=== PATIENT | male | born 1985 | race Caucasian/White ===

== ENCOUNTER → 2020-04-22 | Outpatient (CLI) | payer BC ==
[~2020-04-22] MED LIST: NYST237S SS; Vibramycin100 MG PO
[2020-04-22 12:05] LABS: BASOPHILS ABSOLUTE AUTO 0.02 K/mm3 (0.00-0.23); BASOPHILS PERCENT AUTO 0 % (0-2); EOSINOPHILS ABSOLUTE AUTO 0.01 K/mm3 (0.00-0.68); EOSINOPHILS PERCENT AUTO 0 % (0-6); Hematocrit 50.6 % (37.0-53.0); Hemoglobin 16.5 g/dL (13.5-17.5); IMMATURE GRAN ABSOLUTE AUTO 0.03 K/mm3 (0.00-0.10); IMMATURE GRAN PERCENT AUTO 0 % (0-1); LYMPHOCYTES ABSOLUTE AUTO 0.99 K/mm3 (0.84-5.20); LYMPHOCYTES PERCENT AUTO 11 % (21-46); MONOCYTES ABSOLUTE AUTO 0.95 K/mm3 (0.16-1.47); MONOCYTES PERCENT AUTO 11 % (4-13); Mean Corpuscular HGB 30.6 pg (26.0-34.0); Mean Corpuscular HGB Conc 32.6 g/dL (31.5-36.5); Mean Corpuscular Volume 94 fL (80-100); Mean Platelet Volume 10.9 fL (9.1-12.4); NEUTROPHILS ABSOLUTE AUTO 6.79 K/mm3 (1.96-9.15); NEUTROPHILS PERCENT AUTO 77 % (41-73); Platelet Count 221 K/mm3 (150-400); RDW Coefficient Variation 13.1 % (11.7-14.2); RDW Standard Deviation 45.2 fL (35.1-46.3); Red Blood Cell Count 5.39 M/mm3 (4.30-5.90); White Blood Cell Count 8.79 K/mm3 (4.00-11.30)
[2020-04-22 12:20] LABS: Alanine Aminotransfer (ALT/SGP 27 U/L (12-78); Albumin, Blood 4.1 g/dL (3.4-5.0); Alk Phos 94 U/L (50-136); Anion Gap 5 mmol/L (6-16); Aspartate Aminotrans (AST/SGOT 21 U/L (12-37); Bilirubin, Total 0.5 mg/dL (0.1-1.0); Blood Urea Nitrogen 12 mg/dL (8-24); Bun/Creatinine Ratio 10.3 (12.0-20.0); CO2, Blood 27 mmol/L (21-32); Calcium, Blood 8.7 mg/dL (8.5-10.1); Chloride, Blood 106 mmol/L (98-108); Creatinine, Blood 1.16 mg/dL (0.60-1.20); Glomerular Filtration Rate >60 (60-); Glucose, Blood 106 mg/dL (70-99); Potassium, Blood 3.7 mmol/L (3.5-5.5); Sodium, Blood 138 mmol/L (136-145); Total Protein, Blood 8.1 g/dL (6.4-8.2)
== END ==
LOC: LAB 11:57 → LAB SHORT 11:57
PROVIDERS: Physician Assistant
DX: R53.83 Other fatigue (principal); R50.9 Fever, unspecified
CPT/HCPCS: 80053; 85025

== ENCOUNTER 2020-04-24 21:11 | Emergency (ER) | payer BC ==
[~2020-04-24] VITALS: Ht 180.3 cm; Wt 131.5 kg
[2020-04-24] MEDS ORDERED: Vibramycin100 MG PO (22:35)
[2020-04-24] MEDS ORDERED: NYST237S SS (22:35)
== END 2020-04-24 23:00 | disposition home or self-care (01) ==
LOC: ER 21:11
DX: A69.1 Other Vincent's infections (principal); F17.220 Nicotine dependence, chewing tobacco, uncomplicated; Z88.0 Allergy status to penicillin
CPT/HCPCS: 99283; A9270

== ENCOUNTER → 2021-09-12 | Outpatient (CLI) | payer BC | LOC: LAB 08:30 → LAB SHORT 08:30 | DX: L08.9 Local infection of the skin and subcutaneous tissue, unspecified (principal) | CPT/HCPCS: 87070; 87205 ==

== ENCOUNTER 2024-08-01 17:28 | Emergency (ER) | payer BC ==
[~2024-08-01] VITALS: Ht 180.3 cm; Wt 138.3 kg
[2024-08-01] MEDS ORDERED: Aspirin 325 MG Tab PO ONE ×2 (17:40→20:05)
[2024-08-01 17:53] LABS: BASOPHILS ABSOLUTE AUTO 0.04 K/mm3 (0.00-0.23); BASOPHILS PERCENT AUTO 1 % (0-2); EOSINOPHILS PERCENT AUTO 3 % (0-6); Hematocrit 48.4 % (37.0-53.0); Hemoglobin 16.6 g/dL (13.5-17.5); IMMATURE GRAN ABSOLUTE AUTO 0.03 K/mm3 (0.00-0.10); IMMATURE GRAN PERCENT AUTO 0 % (0-1); LYMPHOCYTES ABSOLUTE AUTO 2.45 K/mm3 (0.84-5.20); LYMPHOCYTES PERCENT AUTO 30 % (21-46); MONOCYTES PERCENT AUTO 9 % (4-13); Mean Corpuscular HGB 31.6 pg (26.0-34.0); Mean Corpuscular HGB Conc 34.3 g/dL (31.5-36.5); Mean Corpuscular Volume 92 fL (80-100); Mean Platelet Volume 10.6 fL (9.1-12.4); NEUTROPHILS PERCENT AUTO 58 % (41-73); Platelet Count 241 K/mm3 (150-400); RDW Coefficient Variation 13.2 % (11.7-14.2); RDW Standard Deviation 45.1 fL (35.1-46.3); Red Blood Cell Count 5.26 M/mm3 (4.30-5.90); White Blood Cell Count 8.12 K/mm3 (4.00-11.30)
[2024-08-01 18:28] LABS: Albumin, Blood 3.9 g/dL (3.4-5.0); Albumin/Globulin Ratio 1.1 (0.8-1.8); Bilirubin, Total 0.6 mg/dL (0.1-1.0); Calcium, Blood 9.1 mg/dL (8.5-10.1); Creatinine, Blood 1.07 mg/dL (0.60-1.20); Globulin, Blood 3.4 g/dL (2.2-4.0); Total Protein, Blood 7.3 g/dL (6.4-8.2)
[2024-08-01] MEDS ORDERED: Mag Hydrox/AL Hydrox/Simeth 30 ML UDC PO ONE (20:20)
[2024-08-01] MEDS ORDERED: Lidocaine 2% Viscous Soln 15 ML UDC PO ONE (20:20)
[2024-08-01] MEDS ORDERED: SUCR1 PO (20:53)
[2024-08-01 21:00] VITALS: BP 118/89
== END 2024-08-01 21:00 | disposition home or self-care (01) ==
LOC: ER 17:28
PROVIDERS: Emergency Medicine
DX: R07.89 Other chest pain (principal); Z87.19 Personal history of other diseases of the digestive system; Z79.899 Other long term (current) drug therapy; Z88.0 Allergy status to penicillin
CPT/HCPCS: 71046; 80053; 83880; 84484; 85025; 93005; 93010; 99285-25; A9270

== ENCOUNTER 2025-04-12 09:59 | Inpatient (IN) | payer BC ==
[~2025-04-12] VITALS: Ht 180.3 cm; Wt 133.8 kg
[~2025-04-12 09:59] MED LIST changes: +AMOX875 PO; +DEPO-TESTO200 MG/18 IM; +OMEP20ER PO; +OXAYDO5 M2 PO; +SUCR1 PO
[2025-04-12] MEDS ORDERED: Ketorolac Tromethamine 15mg Vial IV ONE (10:25)
[2025-04-12] MEDS ORDERED: Acetaminophen 500 MG Tab PO ONE (10:25)
[2025-04-12 11:07] LABS: BASOPHILS ABSOLUTE AUTO 0.05 K/mm3 (0.00-0.23); BASOPHILS PERCENT AUTO 1 % (0-2); EOSINOPHILS ABSOLUTE AUTO 0.14 K/mm3 (0.00-0.68); EOSINOPHILS PERCENT AUTO 2 % (0-6); Hematocrit 51.1 % (37.0-53.0); Hemoglobin 16.8 g/dL (13.5-17.5); IMMATURE GRAN ABSOLUTE AUTO 0.01 K/mm3 (0.00-0.10); IMMATURE GRAN PERCENT AUTO 0 % (0-1); LYMPHOCYTES ABSOLUTE AUTO 2.45 K/mm3 (0.84-5.20); LYMPHOCYTES PERCENT AUTO 39 % (21-46); MONOCYTES ABSOLUTE AUTO 0.52 K/mm3 (0.16-1.47); MONOCYTES PERCENT AUTO 8 % (4-13); Mean Corpuscular HGB 31.1 pg (26.0-34.0); Mean Corpuscular HGB Conc 32.9 g/dL (31.5-36.5); Mean Corpuscular Volume 95 fL (80-100); Mean Platelet Volume 10.4 fL (9.1-12.4); NEUTROPHILS ABSOLUTE AUTO 3.18 K/mm3 (1.96-9.15); NEUTROPHILS PERCENT AUTO 50 % (41-73); Platelet Count 300 K/mm3 (150-400); RDW Coefficient Variation 12.9 % (11.7-14.2); RDW Standard Deviation 44.8 fL (35.1-46.3); Red Blood Cell Count 5.41 M/mm3 (4.30-5.90); White Blood Cell Count 6.35 K/mm3 (4.00-11.30)
[2025-04-12 12:36] LABS: Albumin, Blood 3.5 g/dL (3.4-5.0); Albumin/Globulin Ratio 0.8 (0.8-1.8); Bilirubin, Total 0.7 mg/dL (0.1-1.0); Bun/Creatinine Ratio 11.7 (12.0-20.0); C-REACTIVE PROTEIN, EXT RANGE 0.84 mg/dL (0.000-0.300); Calcium, Blood 8.7 mg/dL (8.5-10.1); Creatinine, Blood 1.11 mg/dL (0.60-1.20); Globulin, Blood 4.2 g/dL (2.2-4.0); Potassium, Blood 4.2 mmol/L (3.5-5.5); Total Protein, Blood 7.7 g/dL (6.4-8.2)
[2025-04-12] MEDS ORDERED: CeFAZolin Sodium 2,000 MG in NS 100 ML IV ONE (15:55)
[2025-04-12] MEDS ORDERED: Morphine Sulfate 4 MG/1 ML Injection IV PRN (16:35)
[2025-04-12] MEDS ORDERED: OxyCODONE HCL 5 MG TAB PO PRN (16:35)
[2025-04-12 19:36] VITALS: BP 116/74
[2025-04-12] MEDS ORDERED: Lactobacil 2-S.Thermo-Bifido 1 1 Cap PO SCH (21:00)
[2025-04-12] MEDS ORDERED: Lactated Ringer's 1,000 ML IV SCH (23:30)
[2025-04-13] MEDS ORDERED: CeFAZolin Sodium 2,000 MG in NS 100 ML IV SCH
[2025-04-13] MEDS ORDERED: NS 250 ML IV PRN (00:10)
[2025-04-13 03:38] VITALS: BP 102/69
--- NOTE | 2025-04-13 04:25 | NUR ---
SHIFT SUMMARY PT WAS A ADMIT TONITE FROM THE ER FOR CELLULITIS TO HIS LEFT LEG WHICH WAS THE RESULT OF SURGERY OF A INFECTED CYST WITH I&D ON 03/27. HES BEEN NPO SINCE MIDNIGHT FOR POSSIBLE SURGERY TODAY. I CALLED DR. BOATENG ANSWERING MACHINE AND INFORMED THEM OF THE PTS CONSULT ORDER FOR HIS LT LEG. REMAINS ON ANCEF Q8HR FOR CELLULITIS. RESTING IN BED AT THIS TIME WITH CALL LIGHT IN REACH
[2025-04-13 07:19] VITALS: BP 118/73
[2025-04-13] MEDS ORDERED: Ondansetron 4 MG SoluTab MM PRN (08:25)
[2025-04-13] MEDS ORDERED: Docusate Sodium/Senna 1 Tab PO PRN (08:25)
[2025-04-13] MEDS ORDERED: Zolpidem Tartrate 5 MG Tab PO PRN (08:25)
[2025-04-13] MEDS ORDERED: Prochlorperazine Maleate 5 MG Tab PO PRN (08:25)
[2025-04-13] MEDS ORDERED: Polyethylene Glycol 3350 17 gm PO PRN (11:35)
[2025-04-13] MEDS ORDERED: HYDROcodone 5-APAP 325 TAB PO PRN (11:35)
[2025-04-13] MEDS ORDERED: HYDROmorphone HCl/Pf 1MG SYR IV PRN (11:40)
[2025-04-13 16:42] VITALS: BP 109/67
--- NOTE | 2025-04-13 17:16 | NUR ---
SHIFT SUMMARY PT IS A/OX4. INDEPENDENT IN THE ROOM. AWAITING I&D THIS SHIFT. I&D PUSHED BACK UNTIL TOMORROW. PT TO BE NPO AT MIDNIGHT. PT REPORTS INCREASED SWELLING AND REDNESS TO THE LLE. MEDICATED FOR PAIN WITH NORCO AND DILUADID PER JAN. CONTINUING IV ANTIBIOTICS. PT REQUESTING BOWEL CARE THIS SHIFT, GIVEN SENOKOT AND PRN MIRALAX PER JAN. AT BEDSIDE THROUGHOUT THIS SHIFT. PT IS PLEASANT AND COOPERATIVE WITH CARE.
[2025-04-13 19:28] VITALS: BP 98/61
[2025-04-13] MEDS ORDERED: Sennosides 8.6 MG Tab PO SCH (21:00)
[2025-04-14] VITALS (22 sets, daily range): BP systolic 89–130; BP diastolic 53–85
[2025-04-14 06:23] LABS: BASOPHILS ABSOLUTE AUTO 0.06 K/mm3 (0.00-0.23); BASOPHILS PERCENT AUTO 1 % (0-2); EOSINOPHILS ABSOLUTE AUTO 0.22 K/mm3 (0.00-0.68); EOSINOPHILS PERCENT AUTO 3 % (0-6); Hematocrit 43.7 % (37.0-53.0); Hemoglobin 14.5 g/dL (13.5-17.5); IMMATURE GRAN ABSOLUTE AUTO 0.01 K/mm3 (0.00-0.10); IMMATURE GRAN PERCENT AUTO 0 % (0-1); LYMPHOCYTES ABSOLUTE AUTO 1.72 K/mm3 (0.84-5.20); LYMPHOCYTES PERCENT AUTO 23 % (21-46); MONOCYTES ABSOLUTE AUTO 1.04 K/mm3 (0.16-1.47); MONOCYTES PERCENT AUTO 14 % (4-13); Mean Corpuscular HGB 31.1 pg (26.0-34.0); Mean Corpuscular HGB Conc 33.2 g/dL (31.5-36.5); Mean Corpuscular Volume 94 fL (80-100); Mean Platelet Volume 10.3 fL (9.1-12.4); NEUTROPHILS ABSOLUTE AUTO 4.31 K/mm3 (1.96-9.15); NEUTROPHILS PERCENT AUTO 59 % (41-73); Platelet Count 244 K/mm3 (150-400); RDW Coefficient Variation 13.1 % (11.7-14.2); RDW Standard Deviation 44.7 fL (35.1-46.3); Red Blood Cell Count 4.66 M/mm3 (4.30-5.90); White Blood Cell Count 7.36 K/mm3 (4.00-11.30)
[2025-04-14 06:54] LABS: Albumin, Blood 3.1 g/dL (3.4-5.0); Albumin/Globulin Ratio 0.9 (0.8-1.8); Bilirubin, Total 0.6 mg/dL (0.1-1.0); Bun/Creatinine Ratio 10.8 (12.0-20.0); Calcium, Blood 8.3 mg/dL (8.5-10.1); Creatinine, Blood 1.02 mg/dL (0.60-1.20); Globulin, Blood 3.3 g/dL (2.2-4.0); Phosphorus, Blood 3.6 mg/dL (2.5-4.9); Potassium, Blood 3.9 mmol/L (3.5-5.5); Total Protein, Blood 6.4 g/dL (6.4-8.2)
[2025-04-14] MEDS ORDERED: Acetaminophen 325 MG TABLET PO PRN (08:50)
[2025-04-14] MEDS ORDERED: Lactated Ringer's 1,000 ML IV SCH (09:05)
--- NOTE | 2025-04-14 10:05 | NUR ---
History, Chart, Medications and Allergies reviewed before start of procedure. Patient confirms NPO status and agrees with scheduled surgery. Pre-Op teaching done. Pt verbalizes understanding. PT LEFT ALL BELONINGS IN MED FLOOR RM.
--- NOTE | 2025-04-14 10:05 | NUR ---
PT TO OR FOR I&D. AT BEDSIDE.
[2025-04-14] MEDS ORDERED: propofoL 20 ML IV ONE (10:21)
[2025-04-14] MEDS ORDERED: FentaNYL Citrate 50 MCG/ML 2 ML Injection ONE ×2 (10:21→11:05)
[2025-04-14] MEDS ORDERED: Dexamethasone Sod Phos 10 MG/ML 1ML VIAL ONE (10:33)
[2025-04-14] MEDS ORDERED: Ondansetron HCl 2 MG / ML 2ML Vial ONE (10:33)
[2025-04-14] MEDS ORDERED: Ketorolac Tromethamine 30mg Vial ONE (10:44)
[2025-04-14] MEDS ORDERED: Bupivacaine 0.5% W/EPI 1:200000 SDV 30 ML Vial ONE (10:46)
[2025-04-14] MEDS ORDERED: Vancomycin HCl 1000 MG ADDvantage ONE (10:48)
[2025-04-14] MEDS ORDERED: HYDROmorphone HCl/Pf 1MG SYR ONE ×2 (11:14→11:30)
--- NOTE | 2025-04-14 11:18 | NUR ---
04/14/25 111Erin Sumner PATIENT IS ON SCHEDULED ANTIBIOTICS, NO ADDITIONAL ANTIBIOTICS ORDERED. VANCOMYCON 1GM INSTILLED INTO OPERATIVE SITE, LEFT LEG.
[2025-04-14] MEDS ORDERED: Lactated Ringer's 1,000 ML IV ONE (11:45)
[2025-04-14] MEDS ORDERED: Enoxaparin 40 MG/0.4 ML SYR SC SCH (15:00)
--- NOTE | 2025-04-14 19:46 | NUR ---
SHIFT SUMMARY PT IS A/OX4. INDEPENDENT IN THE ROOM. I&D THIS AFTERNOON TO THE LLE. PT MEDICATED FOR PAIN WITH NORCO AND DILUADID PER MAR. CONTINUING IV ANTIBIOTICS. PT USING URINAL AT BEDSIDE AT THIS TIME. AT BEDSIDE THROUGHOUT THIS SHIFT. PT IS PLEASANT AND COOPERATIVE WITH CARE AND CALLS APPROPRIATELY USING THE CALL LIGHT.
--- NOTE | 2025-04-15 03:01 | NUR ---
[employer] PROJECT MANAGER SUMMARY: PT MEDICATED T/O SHIFT FOR PAIN TO LLE PER EMAR ORDERS; EFFECTIVE. NO ACUTE EVENTS T/O SHIFT. PT INDEPENTEND WITH CARES. USING URINAL AT BEDSIDE. BED IN LOWEST POSITION. CALL LIGHT IN REACH. ANTICIPATED D/C HOME IN AM. CARES ON GOING ORDERED.
[2025-04-15 04:01] VITALS: BP 114/78
[2025-04-15 05:32] LABS: Hematocrit 41.7 % (37.0-53.0); Hemoglobin 13.7 g/dL (13.5-17.5); Mean Corpuscular HGB 30.8 pg (26.0-34.0); Mean Corpuscular HGB Conc 32.9 g/dL (31.5-36.5); Mean Corpuscular Volume 94 fL (80-100); Mean Platelet Volume 10.4 fL (9.1-12.4); Platelet Count 248 K/mm3 (150-400); RDW Coefficient Variation 12.6 % (11.7-14.2); RDW Standard Deviation 43.8 fL (35.1-46.3); Red Blood Cell Count 4.45 M/mm3 (4.30-5.90)
[2025-04-15 06:12] LABS: Bun/Creatinine Ratio 11.9 (12.0-20.0); Calcium, Blood 8.6 mg/dL (8.5-10.1); Creatinine, Blood 0.93 mg/dL (0.60-1.20); Magnesium, Blood 2.1 mg/dL (1.6-2.4); Phosphorus, Blood 2.9 mg/dL (2.5-4.9); Potassium, Blood 4.3 mmol/L (3.5-5.5)
[2025-04-15 07:20] VITALS: BP 108/66
[2025-04-15] MEDS ORDERED: HYDR1TAB94 PO (12:05)
[2025-04-15] MEDS ORDERED: SENNA PO (12:07)
[2025-04-15] MEDS ORDERED: CEPH500 PO (12:10)
--- NOTE | 2025-04-15 13:03 | NUR ---
PT DISCHARGED AT 1230 WITH ALL PAPERWORK REVIEWED AND EDUCATIONAL MATERIAL SENT. PT HAD L LEG BANDAGE REPLACED PER EMAR. INCISION CLEAN AND ONLY MILD PINK DISCHARGE. PT COLLECTED PERSONAL BELONGINGS AND WAS ESCORTED OUT VIA WHEELCHAIR. TREATED FOR PAIN PER EMAR. MET AT N ENTRANCE TO TRANSPORT HOME. PT HAS BEEN AOX4 AND COOPERATIVE OF CARE.
== END 2025-04-15 12:35 | disposition home or self-care (01) | DRG 571 ==
LOC: ER 09:59 → MEDS 16:34
PROVIDERS: Emergency Medicine; Hospitalist; Orthopaedic Surgery Sports Medicine; ADMIT Internal Medicine
PROC: 0JBP0ZZ Excision of Left Lower Leg Subcutaneous Tissue and Fascia, Open Approach (ICD-10-PCS; principal; 2025-04-14 10:30)
DX: L03.116 Cellulitis of left lower limb (principal); Z68.41 Body mass index [BMI] 40.0-44.9, adult; G47.33 Obstructive sleep apnea (adult) (pediatric); E66.9 Obesity, unspecified; L02.416 Cutaneous abscess of left lower limb; Z88.0 Allergy status to penicillin; B95.0 Streptococcus, group A, as the cause of diseases classified elsewhere; Z98.890 Other specified postprocedural states; Z79.899 Other long term (current) drug therapy
CPT/HCPCS: 36415; 73701; 76882; 80048; 80053; 83605; 83735; 84100; 85025; 85027; 85651; 86140; 87040; 87070; 87071; 87075; 87205; 96374-59; 99285-25; A9270; J0690; J1100; J1171; J1650; J1885; J2270; J2405; J2704; J3010; J3370; J7050; J7120; Q9967